=== PATIENT | male | born 1955 | race Asian ===

== ENCOUNTER 2016-12-21 02:54 | Inpatient (IN) | payer BC ==
[~2016-12-21] VITALS: Ht 172.7 cm; Wt 67.7 kg
[2016-12-21] VITALS (7 sets, daily range): BP systolic 122–129; BP diastolic 66–79
[2016-12-21] MEDS ORDERED: METFORMIN HCL500 M1 ORAL (03:03)
[2016-12-21] MEDS ORDERED: LOSARTAN POTASS25 MG ORAL (03:03)
[2016-12-21] MEDS ORDERED: AMLODIPINE BESYL5 MG ORAL (03:03)
[2016-12-21] MEDS ORDERED: LIPITOR80 MG ORAL (03:34)
[2016-12-21] MEDS ORDERED: GLIPIZIDE10 MG PO (03:34)
[2016-12-21] MEDS ORDERED: LOSARTAN POTAS100 MG ORAL (03:34)
[2016-12-21] MEDS ORDERED: ASPIR-LOW81 MG ORAL (03:34)
[2016-12-21 04:21] LABS: BASOPHILS % (AUTO) 0.9 % (0.0-2.0); EOSINOPHILS % (AUTO) 2.8 % (0.0-3.0); LYMPHOCYTES % (AUTO) 10.8 % (20.0-45.0); MEAN CORPUSCULAR VOLUME 94 FL (80-99); MONOCYTES % (AUTO) 4.7 % (1.0-10.0); NEUTROPHILS % (AUTO) 80.9 % (45.0-75.0); PLATELET COUNT 249 K/UL (150-450); RED BLOOD COUNT 3.44 M/UL (4.70-6.10); RED CELL DISTRIBUTION WIDTH 11.6 % (11.6-14.8); WHITE BLOOD COUNT 12.4 K/UL (4.8-10.8)
[2016-12-21 04:34] LABS: ALBUMIN/GLOBULIN RATIO 1.2 (1.0-2.7); CALCIUM 8.5 mg/dL (8.6-10.2); CREATININE 1.4 mg/dL (0.7-1.2); GLOMERULAR FILTRATION RATE 51.5 mL/min (>60); POTASSIUM 4.7 mEQ/L (3.4-4.9); TOTAL PROTEIN 6.4 g/dL (6.6-8.7)
[2016-12-21 04:38] LABS: TROPONIN I < 0.30 ng/mL (<=0.30)
[2016-12-21] MEDS ORDERED: Cefepime HCl 2 GM in D5W 110 ML IVPB ONE (04:45)
--- NOTE | 2016-12-21 04:45 | Emergency Room Report ---
History of Present Illness General Chief Complaint: Dyspnea/Respdistress Source: Patient, EMS Present Illness HPI 61YOM BIBEMS with acute onset SOB Per EMS, bilateral rales on exam, O2 sat 80s History of CHF, DM Denies recent fever/chills, cough, chest pain, abd pain, urinary complaints Allergies: Coded Allergies: No Known Allergies (Unverified , 12/21/16) Patient History Past Medical History: DM, CHF Past Surgical History: none Pertinent Family History: none Social History: Denies: alcohol use, drug use, smoking Immunizations: UTD Reviewed Nursing Documentation: PMH: Agreed, PSxH: Agreed Nursing Documentation-PMH Past Medical History: No History, Except For Hx Cardiac Problems: Yes - CHF Hx Hypertension: Yes Hx Diabetes: Yes Review of Systems All Other Systems: negative except mentioned in HPI Physical Exam Vital Signs Date Time Temp Pulse Resp B/P Pulse Ox O2 Delivery O2 Flow Rate FiO2 12/21/16 02:55 98.6 93 35 136/77 95 Simple Mask 15.0 12/21/16 03:36 50 Sp02 EP Interpretation: reviewed, normal General Appearance: normal inspection, well appearing, alert, GCS 15, moderate distress Head: normocephalic, atraumatic Eyes: bilateral eye EOMI, bilateral eye PERRL ENT: normal ENT inspection, hearing grossly normal, normal voice Neck: normal inspection, full range of motion, supple, no bony tend Respiratory: normal inspection, no wheezing, respiratory distress, accessory muscle use, crackles Cardiovascular #1: regular rate, rhythm, no edema Gastrointestinal: normal inspection, normal bowel sounds, non tender, soft, no guarding, no hernia Genitourinary: no CVA tenderness Musculoskeletal: normal inspection, back normal, normal range of motion, Darren' s Sign negative Neurologic: normal inspection, alert, oriented x3, responsive, employment assistant III-XII nml as tested, motor strength/tone normal, speech normal Psychiatric: normal inspection, judgement/insight normal, mood/affect normal Skin: normal inspection, normal color, no rash Lymphatic: normal inspection Medical Decision Making Medicare Attestation I John White MD hereby attest that the medical record entry for date of service, 04/19/16 accurately reflects signatures/notations that I made in my capacity as MD when I treated/diagnosed the above listed Medicare beneficiary. I attest that this information is true, accurate and complete to the best of my knowledge. I understand that any falsification, omission, or concealment of material fact may subject me to administrative, civil, or criminal liability. This patient warrants hospital admission for extreme of age and has a condition that cannot be treated as outpatient. Diagnostic Impression: Primary Impression: Dyspnea Qualified Codes: R06.02 - Shortness of breath Additional Impressions: CHF (congestive heart failure) Qualified Codes: I50.9 - Heart failure, unspecified SHIRLENE (acute kidney injury) ER Course Acute on chronic CHF exab - Elevation BNP. CXR with pulm edema - Improved with lasix, Bipap - ECG with lateral ST depressions. Trop 0. ASA given. - Mild leuks, ?also PNA on CXR so ABx given after Blood Cx Endorsed to Dr Maldonado for [facility] admit at 508am EKG Diagnostic Results Rate: normal Rhythm: NSR ST Segments: other - V5-6 ST depressions ASA given to the pt in ED: Yes Rhythm Strip Diag. Results EP Interpretation: yes Rate: 56 Rhythm: NSR, no PVC's, no ectopy Chest X-Ray Diagnostic Results Chest X-Ray Diagnostic Results : Chest X-Ray Ordered: Yes # of Views/Limited/Complete: 1 View Indication: Shortness of Breath EP Interpretation: Yes Interpretation: no pneumothorax, other - Bilateral pulm congestion Interpreting ER Provider: Electronically signed by Dr White Last Vital Signs Date Time Temp Pulse Resp B/P Pulse Ox O2 Delivery O2 Flow Rate FiO2 12/21/16 04:34 68 20 100 Facial 30 12/21/16 03:09 98.6 128/79 15.0 Status: improved Disposition: ADMITTED INPATIENT Condition: Serious Referrals: NON PHYSICIAN (PCP) JOHN WHITE M.D. Dec 21, 2016 04:45
[2016-12-21] MEDS ORDERED: Cefepime 2gm ONE (05:04)
[2016-12-21] MEDS ORDERED: DuoNeb 0.5-3(2.5)mg/3ml neb HHN PRN (08:00)
[2016-12-21] MEDS ORDERED: Miralax 17gm pkt ORAL PRN (08:00)
[2016-12-21] MEDS ORDERED: Losartan 50mg tab ORAL SCH (09:00)
[2016-12-21] MEDS: Heparin 5000 units/ml inj SUBQ SCH ×2 (09:28→21:18)
[2016-12-21] MEDS: Aspirin EC 81mg tab ORAL SCH (09:35)
--- NOTE | 2016-12-21 10:13 | History and Physical ---
History of Present Illness General Date patient seen: Dec 21, 2016 Reason for Hospitalization: Dyspnea/Respdistress Present Illness HPI 61 year old male with hx of DM, HTN, CHF brought in by paramedics with CC of acute onset SOB. Per EMS, he had bilateral rales on exam, O2 sat 80s Denies recent fever/chills, cough, chest pain, abd pain, urinary complaints. Pt received respiratory treatment and diuretics in ER and got somewhat better and admitted to [facility] for further treatment. Allergies: Coded Allergies: No Known Allergies (Unverified , 12/21/16) Medication History Scheduled Amlodipine Besylate* (Amlodipine Besylate*), 5 MG ORAL DAILY, (Reported) Aspirin* (Aspir-Low*), 81 MG ORAL DAILY, (Reported) Atorvastatin (Lipitor), 10 MG ORAL DAILY, (Reported) Losartan Potassium (Losartan Potassium), 100 MG ORAL DAILY, (Reported) Losartan Potassium* (Losartan Potassium*), 25 MG ORAL DAILY, (Reported) Metformin Hcl* (Metformin Hcl*), 500 MG ORAL TWICE A DAY, (Reported) Miscellaneous Medications Glipizide (Glipizide), 10 MG PO, (Reported) Patient History Healthcare decision maker Resuscitation status Advanced Directive on File Past Medical/Surgical History Past Medical/Surgical History: (1) Diabetes mellitus (2) HTN (hypertension) Review of Systems All Other Systems: negative except mentioned in HPI Physical Exam General Appearance: WD/WN Lines, tubes and drains: peripheral HEENT: normocephalic, atraumatic Neck: non-tender, normal alignment Respiratory/Chest: chest wall non-tender, lungs clear Cardiovascular/Chest: normal peripheral pulses, normal rate Abdomen: normal bowel sounds, non tender Genitourinary/Rectal: normal genital exam Extremities: normal range of motion Skin Exam: normal pigmentation Last 24 Hour Vital Signs Date Time Temp Pulse Resp B/P Pulse Ox O2 Delivery O2 Flow Rate FiO2 12/21/16 09:27 129/68 12/21/16 09:27 71 129/68 12/21/16 09:00 97.7 71 18 129/68 98 Nasal Cannula 5.0 12/21/16 08:47 63 18 Nasal Cannula 5.0 12/21/16 07:21 98.0 63 19 129/72 97 Nasal Cannula 5.0 12/21/16 05:28 98.6 76 16 124/66 100 Nasal Cannula 2.0 12/21/16 04:34 68 20 100 Facial 30 12/21/16 03:36 78 23 100 Facial 50 12/21/16 03:09 98.6 84 24 128/79 95 Simple Mask 15.0 12/21/16 03:09 85 24 Bi-pap 15.0 12/21/16 02:55 98.6 93 35 136/77 95 Simple Mask 15.0 Intake and Output 12/20/16 12/21/16 19:00 07:00 Intake Total 0 ml Output Total 600 ml Balance -600 ml Intake Oral 0 ml Output Urine Total 600 ml Laboratory Tests Test 12/21/16 04:10 White Blood Count 12.4 K/UL (4.8-10.8) H Red Blood Count 3.44 M/UL (4.70-6.10) L Hemoglobin 11.0 G/DL (14.2-18.0) L Hematocrit 32.4 % (42.0-52.0) L Mean Corpuscular Volume 94 FL (80-99) Mean Corpuscular Hemoglobin 32.0 PG (27.0-31.0) H Mean Corpuscular Hemoglobin Concent 34.0 G/DL (32.0-36.0) Red Cell Distribution Width 11.6 % (11.6-14.8) Platelet Count 249 K/UL (150-450) Mean Platelet Volume 8.0 FL (6.5-10.1) Neutrophils (%) (Auto) 80.9 % (45.0-75.0) H Lymphocytes (%) (Auto) 10.8 % (20.0-45.0) L Monocytes (%) (Auto) 4.7 % (1.0-10.0) Eosinophils (%) (Auto) 2.8 % (0.0-3.0) Basophils (%) (Auto) 0.9 % (0.0-2.0) Sodium Level 136 mEQ/L (135-145) Potassium Level 4.7 mEQ/L (3.4-4.9) Chloride Level 105 mEQ/L (98-107) Carbon Dioxide Level 21 mEQ/L (20-30) Anion Gap 10 (5-15) Blood Urea Nitrogen 39 mg/dL (7-23) H Creatinine 1.4 mg/dL (0.7-1.2) H Estimat Glomerular Filtration Rate 51.5 mL/min (>60) Glucose Level 305 mg/dL (74-106) H Calcium Level 8.5 mg/dL (8.6-10.2) L Total Bilirubin 0.2 mg/dL (0.0-1.2) Aspartate Amino Transf (AST/SGOT) 18 U/L (5-40) Alanine Aminotransferase (ALT/SGPT) 22 U/L (3-41) Alkaline Phosphatase 48 U/L (40-129) Total Creatine Kinase 119 U/L (38-174) Creatine Kinase MB 3.0 ng/mL (< 6.7) Creatine Kinase MB Relative Index 2.5 Troponin I < 0.30 ng/mL (<=0.30) Pro-B-Type Natriuretic Peptide 1649 pg/mL (0-125) H Total Protein 6.4 g/dL (6.6-8.7) L Albumin 3.5 g/dL (3.5-5.2) Globulin 2.9 g/dL Albumin/Globulin Ratio 1.2 (1.0-2.7) Height (Feet): 5 Height (Inches): 8.00 Weight (Pounds): 175 Medications Current Medications Medications (Trade) Dose Ordered Sig/Ashlee Route PRN Reason Start Time Stop Time Status Last Admin Dose Admin Acetaminophen (Tylenol) 650 mg Q4H PRN ORAL Fever>100.5 12/21/16 08:00 01/20/17 07:59 Albuterol/ Ipratropium (DuoNeb 0.5-3(2.5)mg/3ml) 3 ml Q4H PRN HHN Shortness of Breath 12/21/16 08:00 12/26/16 07:59 Amlodipine Besylate (Norvasc) 5 mg DAILY ORAL 12/21/16 09:00 01/20/17 08:59 12/21/16 09:27 Aspirin (Ecotrin) 81 mg DAILY ORAL 12/21/16 09:00 01/20/17 08:59 12/21/16 09:35 Atorvastatin Calcium (Lipitor) 10 mg BEDTIME ORAL 12/21/16 21:00 01/20/17 20:59 Dextrose (Dextrose 50%) STAT PRN IV Hypoglycemia 12/21/16 08:00 01/20/17 07:59 Furosemide (Lasix) 40 mg EVERY 8 HOURS IV 12/21/16 08:00 01/20/17 07:59 12/21/16 09:27 Heparin Sodium (Porcine) (Heparin 5000 units/ml) 5,000 units EVERY 12 HOURS SUBQ 12/21/16 09:00 01/20/17 08:59 12/21/16 09:28 Insulin Aspart (NovoLOG) BEFORE MEALS AND HS SUBQ 12/21/16 11:30 01/20/17 11:29 Losartan Potassium (Cozaar) 100 mg DAILY ORAL 12/21/16 09:00 01/20/17 08:59 12/21/16 09:27 Ondansetron HCl (Zofran) 4 mg Q6H PRN IVP Nausea & Vomiting 12/21/16 08:00 01/20/17 07:59 Polyethylene Glycol (Miralax) 17 gm DAILYPRN PRN ORAL Constipation 12/21/16 08:00 01/20/17 07:59 Temazepam (Restoril) 15 mg HSPRN PRN ORAL Insomnia 12/21/16 21:00 12/28/16 20:59 Assessment/Plan Problem List: (1) Acute respiratory failure ICD Codes: J96.00 - Acute respiratory failure, unspecified whether with hypoxia or hypercapnia SNOMED: 72675656 (2) CHF (congestive heart failure) ICD Codes: I50.9 - Heart failure, unspecified SNOMED: 89987924 Qualifiers: Qualified Codes: I50.9 - Heart failure, unspecified (3) Diabetes mellitus ICD Codes: E11.9 - Type 2 diabetes mellitus without complications SNOMED: 07383637 (4) HTN (hypertension) ICD Codes: I10 - Essential (primary) hypertension SNOMED: 30054613 Assessment/Plan diuretics f/u cxr in am cardio evaluation 2d echo CURTIS SMITH Dec 21, 2016 10:13
[2016-12-21] MEDS: NovoLOG Insulin Flexpen SUBQ SCH ×3 (12:37→21:17)
[2016-12-21 12:58] LABS: TROPONIN I < 0.30 ng/mL (<=0.30)
--- NOTE | 2016-12-21 13:14 | Cardiology Progress Note ---
Assessment/Plan Assessment/Plan chf severe aortic stenosis exertional chest pain renal insuf dm htn hyperlipidemia will likley need avr may qualify for TAVR at [facility] i have discussed with him very briefly about the possibility not clear to me if tavr is offered to him already he is hesitent to do anythign it appear as had renal fiurel post cath but i i think in light of development of sx he shoudlhave the valve taken care fo one way or the other as at risk of major complication or scd now with symtomtic will contienu anoteh dose of diuretic overnight byt would not tightly control his bp [id number] Objective Last 24 Hour Vital Signs Date Time Temp Pulse Resp B/P Pulse Ox O2 Delivery O2 Flow Rate FiO2 12/21/16 12:00 97.5 65 20 126/71 99 Nasal Cannula 4.0 12/21/16 11:40 75 12/21/16 10:11 62 12/21/16 09:27 129/68 12/21/16 09:27 71 129/68 12/21/16 09:00 97.7 71 18 129/68 98 Nasal Cannula 5.0 12/21/16 08:47 63 18 Nasal Cannula 5.0 12/21/16 07:56 98.0 63 19 129/72 97 Nasal Cannula 5.0 30 12/21/16 07:21 98.0 63 19 129/72 97 Nasal Cannula 5.0 12/21/16 05:28 98.6 76 16 124/66 100 Nasal Cannula 2.0 12/21/16 04:34 68 20 100 Facial 30 12/21/16 03:36 78 23 100 Facial 50 12/21/16 03:09 98.6 84 24 128/79 95 Simple Mask 15.0 12/21/16 03:09 85 24 Bi-pap 15.0 12/21/16 02:55 98.6 93 35 136/77 95 Simple Mask 15.0 Intake and Output 12/20/16 12/21/16 19:00 07:00 Intake Total 0 ml Output Total 600 ml Balance -600 ml Intake Oral 0 ml Output Urine Total 600 ml Laboratory Tests Test 12/21/16 04:10 12/21/16 12:26 White Blood Count 12.4 K/UL (4.8-10.8) H Red Blood Count 3.44 M/UL (4.70-6.10) L Hemoglobin 11.0 G/DL (14.2-18.0) L Hematocrit 32.4 % (42.0-52.0) L Mean Corpuscular Volume 94 FL (80-99) Mean Corpuscular Hemoglobin 32.0 PG (27.0-31.0) H Mean Corpuscular Hemoglobin Concent 34.0 G/DL (32.0-36.0) Red Cell Distribution Width 11.6 % (11.6-14.8) Platelet Count 249 K/UL (150-450) Mean Platelet Volume 8.0 FL (6.5-10.1) Neutrophils (%) (Auto) 80.9 % (45.0-75.0) H Lymphocytes (%) (Auto) 10.8 % (20.0-45.0) L Monocytes (%) (Auto) 4.7 % (1.0-10.0) Eosinophils (%) (Auto) 2.8 % (0.0-3.0) Basophils (%) (Auto) 0.9 % (0.0-2.0) Sodium Level 136 mEQ/L (135-145) Potassium Level 4.7 mEQ/L (3.4-4.9) Chloride Level 105 mEQ/L (98-107) Carbon Dioxide Level 21 mEQ/L (20-30) Anion Gap 10 (5-15) Blood Urea Nitrogen 39 mg/dL (7-23) H Creatinine 1.4 mg/dL (0.7-1.2) H Estimat Glomerular Filtration Rate 51.5 mL/min (>60) Glucose Level 305 mg/dL (74-106) H Calcium Level 8.5 mg/dL (8.6-10.2) L Total Bilirubin 0.2 mg/dL (0.0-1.2) Aspartate Amino Transf (AST/SGOT) 18 U/L (5-40) Alanine Aminotransferase (ALT/SGPT) 22 U/L (3-41) Alkaline Phosphatase 48 U/L (40-129) Total Creatine Kinase 119 U/L (38-174) Creatine Kinase MB 3.0 ng/mL (< 6.7) Creatine Kinase MB Relative Index 2.5 Troponin I < 0.30 ng/mL (<=0.30) < 0.30 ng/mL (<=0.30) Pro-B-Type Natriuretic Peptide 1649 pg/mL (0-125) H Total Protein 6.4 g/dL (6.6-8.7) L Albumin 3.5 g/dL (3.5-5.2) Globulin 2.9 g/dL Albumin/Globulin Ratio 1.2 (1.0-2.7) CHARLES HAM Dec 21, 2016 13:14
--- NOTE | 2016-12-21 15:20 | Cardiology Report ---
APPROVED REPORT EXAM: Two-dimensional and M-mode echocardiogram with Doppler and color Doppler. INDICATION Left Ventricular Function M-Mode DIMENSIONS IVSd1.4 (0.7-1.1cm)Left Atrium (MM)5.2 (1.6-4.0cm) LVDd4.7 (3.5-5.6cm)Aortic Root2.4 (2.0-3.7cm) PWd1.3 (0.7-1.1cm)Aortic Cusp Exc.0.6 (1.5-2.0cm) LVDs2.8 (2.5-4.0cm) PWs2.1 cm Normal left ventricular chamber size, systolic function and wall motion. Left ventricular ejection fraction estimated to be 55 -60 %. Mild left ventricular hypertrophy. No evidence of pericardial fat or effusion. Mild left atrial enlargement. Right cardiac chamber sizes are within normal limits. Aortic valve calcification with decreased cusp excursion c/w SEVERE aortic stenosis. Mildly thickened mitral valve leaflets with normal excursion. Mild mitral annulus and aortic root calcification. Normal pulmonic valve structure. Normal tricuspid valve structure. IVC dilated at 2.0 cm with physiologic collapse. A color flow and spectral Doppler study was performed and revealed: Mild aortic regurgitation. Peak aortic valve gradient of 88 mmHg and a mean of 57 mmHg. Aortic valve area 0.6 cm2 calculated by continuity equation. Mild mitral regurgitation. Mitral inflow normal Mild tricuspid regurgitation. Tricuspid systolic velocities suggests peak right ventricular systolic pressure of 53 mmHg, consistent with moderate pulmonary hypertension. No pulmonic regurgitation present.
--- NOTE | 2016-12-21 16:12 | Diagnostic Imaging Report ---
Indication: SOB Technique: One view of the chest Comparison: none Findings: There is suggestion of infrahilar infiltrates bilaterally. There is possibly some pleural fluid on the left. The heart size is normal. The right pleural space, bilateral upper lung crandall are clear. Impression: Suspect bilateral infrahilar infiltrates and small left pleural effusion. Correlate with clinical findings
--- NOTE | 2016-12-21 20:30 | Consultation ---
DATE OF CONSULTATION: 12/21/2016 CARDIOLOGY CONSULTATION CONSULTING PHYSICIAN: Porter Barnes M.D. REFERRING PHYSICIAN: Bethel Maldonado M.D. REASON FOR REFERRAL: Congestive heart failure. HISTORY OF PRESENT ILLNESS: This is a 61-year-old [place] gentleman, who apparently has history of hypertension and diabetes. I get that his usual distribution field technician a month ago referred him to [facility] for evaluation where he apparently underwent testing that sounds like he had a coronary angiography complicated by renal failure and eventual resolution of renal failure. Nevertheless, they told him he needs surgery and different doctors have been involved, but apparently they did not find any vascular blockages as I understand. It is important to note that the information obtained is purely from the patient through one of our [place] nurses translating for me. Nevertheless, eventually it has been functionally improved. He started having shortness of breath last night and he walked to bathroom and has had some chest pain on exertion that goes away with rest. He has a tightness sensation in the chest as what he described it. There is no PND otherwise. There is no orthopnea. He uses one pillow. Occasionally, he has dizziness and lightheadedness. He occasionally has palpitation. PAST MEDICAL HISTORY: There is history of diabetes mellitus and high blood pressure. No history of heart attack. He has had hyperlipidemia. No cancer. No stroke. No hepatitis or tuberculosis. No asthma or emphysema. No ulcers. He did mention that he has renal failure as a result of the dye possibly as I understand. No liver failure. No thyroid problems, anemia, or arthritis. He thinks he may have prostate problems, but he is not sure and no other medical problems. ALLERGIES: He is not allergic to any medications. SOCIAL HISTORY: He used to smoke, quit approximately one year ago. Socially, he drinks alcoholic beverages. No drug use. REVIEW OF SYSTEMS: Gastrointestinal: He has occasional constipation. Genitourinary: He has had some discomfort on urination. Pulmonary: Negative. Constitutional: Negative. Neurologic: Negative. PHYSICAL EXAMINATION: GENERAL: Shows to be middle-aged gentleman, in no apparent respiratory distress. VITAL SIGNS: His blood pressure is anywhere between 126/71 to 136/77. His heart rates have been in the 63 to 75 range. NECK: Supple. There is a delay in carotid upstroke. LUNGS: Few crackles noted in the bases. CARDIAC: S1 is normal. S2 is normal. Regular rate and rhythm. Systolic ejection murmur is noted in the aortic band. ABDOMEN: Soft and nontender. Positive bowel sounds. EXTREMITIES: There is no clubbing, cyanosis, nor is there any edema. NEUROLOGIC: He is awake, alert, responsive, and in no apparent respiratory distress. LABORATORY DATA: The white count of 12.4, hemoglobin 11, and platelet count 249,000. Sodium 136, potassium 4.7, chloride 105, bicarbonate of 21, BUN of 39, creatinine 1.4, and a glucose of 305. His calcium is 8.5. Troponin is less than 0.3 on two separate occasions. ProBNP of 1600. Total protein of 6.4 and albumin of 3.5. Venous duplex that was performed shows no evidence of thrombus. Chest x-ray may have been performed although the report is not available. Chest x-ray shows some evidence of failure at least to my reading, official reading per the radiologist is pending at this time. His electrocardiogram performed showed a normal sinus rhythm, some nonspecific T-wave changes, possibly related to left ventricular hypertrophy. There is no other abnormalities. Preliminary echocardiogram has shown ejection fraction of 55%, normal wall motion with dilated IVC and mild aortic regurgitation. Peak aortic valve gradient is 88 and mean gradient of 57 with aortic valve area of 0.6. This needs to be evaluated. He does have mild aortic stenosis with pulmonary hypertension in the 50s. ASSESSMENT: 1. Congestive heart failure. 2. Severe aortic stenosis. 3. Exertional chest pain. 4. Renal insufficiency. 5. Diabetes mellitus. 6. Hypertension. 7. Hyperlipidemia. PLAN: Dr. Maldonado, this patient was seen in cardiac consultation. Certainly, the congestive heart failure is likely being caused by the aortic stenosis, not clear to me if he has any coronary disease. Apparently, he was told there was no blockages in his coronaries as I understand it. He will likely need an aortic valve replacement. He may on the other hand qualify for TAVR at [facility] as well. I discussed with him very briefly about those two possibilities. It not clear to me if TAVR was ever offered to him already. He states it appears as he had renal failure post cardiac catheterization that was performed, however, in the light of the fact that he now has symptomatic aortic stenosis, so he should have without taking care of one way or the other to prevent the possible risks and complications of untreated symptomatic aortic stenosis, which includes congestive heart failure and certainly a risk of sudden cardiac . I would continue with diuretics at least overnight and I would not control his blood pressure tightly. Porter Barnes M.D. DR: MIKAYLA JOB#: [id number] CC:
[2016-12-22] VITALS: BP 128/72
[2016-12-22 04:00] VITALS: BP 124/72
[2016-12-22] MEDS: NovoLOG Insulin Flexpen SUBQ SCH ×4 (06:11→20:48)
[2016-12-22 07:48] LABS: BASOPHILS % (AUTO) 1.5 % (0.0-2.0); EOSINOPHILS % (AUTO) 6.1 % (0.0-3.0); LYMPHOCYTES % (AUTO) 26.3 % (20.0-45.0); MEAN CORPUSCULAR HEMOGLOBIN 31.7 PG (27.0-31.0); MEAN CORPUSCULAR HGB CONC 33.2 G/DL (32.0-36.0); MEAN CORPUSCULAR VOLUME 95 FL (80-99); MONOCYTES % (AUTO) 5.8 % (1.0-10.0); NEUTROPHILS % (AUTO) 60.3 % (45.0-75.0); PLATELET COUNT 307 K/UL (150-450); RED CELL DISTRIBUTION WIDTH 11.9 % (11.6-14.8); WHITE BLOOD COUNT 10.6 K/UL (4.8-10.8)
[2016-12-22 07:59] LABS: CREATININE 1.6 mg/dL (0.7-1.2); GLOMERULAR FILTRATION RATE 44.2 mL/min (>60); TROPONIN I < 0.30 ng/mL (<=0.30)
[2016-12-22 08:00] VITALS: BP 125/65
[2016-12-22] MEDS: Aspirin EC 81mg tab ORAL SCH (08:53)
[2016-12-22] MEDS: Heparin 5000 units/ml inj SUBQ SCH ×2 (08:55→20:47)
--- NOTE | 2016-12-22 11:09 | Pulmonology Progress Note ---
Assessment/Plan Problems: (1) Acute respiratory failure (2) CHF (congestive heart failure) (3) Diabetes mellitus (4) HTN (hypertension) Assessment/Plan dc lasix for now watch bun/creatinine pulmonary edema resolved adjust cardiac meds Subjective ROS Limited/Unobtainable: No Constitutional: Reports: no symptoms HEENT: Repors: no symptoms Respiratory: Reports: no symptoms Allergies: Coded Allergies: No Known Allergies (Unverified , 12/21/16) Objective Last 24 Hour Vital Signs Date Time Temp Pulse Resp B/P Pulse Ox O2 Delivery O2 Flow Rate FiO2 12/22/16 08:53 61 125/65 12/22/16 08:01 58 12/22/16 08:00 98.3 61 20 125/65 100 Nasal Cannula 2.0 12/22/16 06:33 98 Nasal Cannula 2.0 28 12/22/16 06:33 Nasal Cannula 2.0 28 12/22/16 06:33 75 18 Nasal Cannula 2.0 12/22/16 04:00 60 12/22/16 04:00 97.2 68 19 124/72 99 Nasal Cannula 2.0 12/22/16 00:00 70 12/22/16 00:00 97.0 66 19 128/72 98 Nasal Cannula 2.0 12/21/16 20:00 97.5 69 19 123/78 97 Room Air 12/21/16 19:19 69 12/21/16 19:05 69 18 Nasal Cannula 2.0 12/21/16 16:00 97.3 65 20 122/68 99 Nasal Cannula 4.0 12/21/16 15:27 62 12/21/16 12:00 97.5 65 20 126/71 99 Nasal Cannula 4.0 12/21/16 11:40 75 Intake and Output 12/21/16 12/22/16 19:00 07:00 Intake Total 240 ml Balance 240 ml Intake Oral 240 ml # Voids 2 4 General Appearance: WD/WN HEENT: normocephalic, atraumatic Respiratory/Chest: chest wall non-tender, normal breath sounds Cardiovascular: normal peripheral pulses, normal rate Abdomen: normal bowel sounds, soft, non tender, no organomegaly Genitourinary: normal external genitalia Extremities: no cyanosis Skin: no lesions Neurologic/Psychiatric: dancer or choreographer II-XII grossly normal Lymphatic: no neck adenopathy Musculoskeletal: normal muscle bulk Laboratory Tests 8/8/17 12:26: Troponin I < 0.30 12/22/16 07:15: Troponin I < 0.30, White Blood Count 10.6, Red Blood Count 4.00L, Hemoglobin 12.7L, Hematocrit 38.2L, Mean Corpuscular Volume 95, Mean Corpuscular Hemoglobin 31.7H, Mean Corpuscular Hemoglobin Concent 33.2, Red Cell Distribution Width 11.9, Platelet Count 307, Mean Platelet Volume 8.0, Neutrophils (%) (Auto) 60.3, Lymphocytes (%) (Auto) 26.3, Monocytes (%) (Auto) 5.8, Eosinophils (%) (Auto) 6.1H, Basophils (%) (Auto) 1.5, Sodium Level 140, Potassium Level 5.0H, Chloride Level 102, Carbon Dioxide Level 27, Anion Gap 11 , Blood Urea Nitrogen 38H, Creatinine 1.6H, Estimat Glomerular Filtration Rate 44.2, Glucose Level 244H, Calcium Level 10.0, Phosphorus Level 5.0H, Albumin 4.3 Current Medications Medications (Trade) Dose Ordered Sig/Ashlee Route PRN Reason Start Time Stop Time Status Last Admin Dose Admin Acetaminophen (Tylenol) 650 mg Q4H PRN ORAL Fever>100.5 12/21/16 08:00 01/20/17 07:59 Albuterol/ Ipratropium (DuoNeb 0.5-3(2.5)mg/3ml) 3 ml Q4H PRN HHN Shortness of Breath 12/21/16 08:00 12/26/16 07:59 Amlodipine Besylate (Norvasc) 5 mg DAILY ORAL 12/21/16 09:00 01/20/17 08:59 12/22/16 08:53 Aspirin (Ecotrin) 81 mg DAILY ORAL 12/21/16 09:00 01/20/17 08:59 12/22/16 08:53 Atorvastatin Calcium (Lipitor) 10 mg BEDTIME ORAL 12/21/16 21:00 01/20/17 20:59 12/21/16 21:11 Dextrose (Dextrose 50%) STAT PRN IV Hypoglycemia 12/21/16 08:00 01/20/17 07:59 Furosemide (Lasix) 40 mg BID IV 12/21/16 18:00 01/20/17 17:59 12/22/16 08:53 Heparin Sodium (Porcine) (Heparin 5000 units/ml) 5,000 units EVERY 12 HOURS SUBQ 12/21/16 09:00 01/20/17 08:59 12/22/16 08:55 Insulin Aspart (NovoLOG) BEFORE MEALS AND HS SUBQ 12/21/16 11:30 01/20/17 11:29 12/22/16 06:11 Ondansetron HCl (Zofran) 4 mg Q6H PRN IVP Nausea & Vomiting 12/21/16 08:00 01/20/17 07:59 Polyethylene Glycol (Miralax) 17 gm DAILYPRN PRN ORAL Constipation 12/21/16 08:00 01/20/17 07:59 Temazepam (Restoril) 15 mg HSPRN PRN ORAL Insomnia 12/21/16 21:00 12/28/16 20:59 CURTIS SMITH Dec 22, 2016 11:09
[2016-12-22 12:00] VITALS: BP 114/63
--- NOTE | 2016-12-22 12:58 | Diagnostic Imaging Report ---
APPROVED REPORT CPT Code: 18323 Present Symptoms Shortness of breath BILATERAL: Imaging reveals a patent deep venous system bilaterally. There is no evidence of thrombus within the femoral, popliteal or tibial segments. The greater saphenous veins are also within normal limits. Doppler indicates normal spontaneous flow within these segments.
[2016-12-22 16:00] VITALS: BP 129/75
--- NOTE | 2016-12-22 19:50 | Cardiology Progress Note ---
Assessment/Plan Assessment/Plan chf severe aortic stenosis exertional chest pain renal insuf dm htn hyperlipidemia will likley need avr however may qualify for TAVR at [facility] now off lasix cr mildly elevated dc home soon so he can pursuit his eventual procedure which ever he chooses to do so tele reviwed [facility] Subjective Cardiovascular: Denies: chest pain, lightheadedness, palpitations Respiratory: Reports: shortness of breath Gastrointestinal/Abdominal: Denies: abdominal pain Genitourinary: Denies: burning Objective Last 24 Hour Vital Signs Date Time Temp Pulse Resp B/P Pulse Ox O2 Delivery O2 Flow Rate FiO2 12/22/16 16:00 65 12/22/16 16:00 98.0 59 20 129/75 99 Nasal Cannula 2.0 12/22/16 12:00 98.1 60 21 114/63 99 Nasal Cannula 2.0 12/22/16 11:51 57 12/22/16 08:53 61 125/65 12/22/16 08:01 58 12/22/16 08:00 98.3 61 20 125/65 100 Nasal Cannula 2.0 12/22/16 06:33 98 Nasal Cannula 2.0 28 12/22/16 06:33 Nasal Cannula 2.0 28 12/22/16 06:33 75 18 Nasal Cannula 2.0 12/22/16 04:00 60 12/22/16 04:00 97.2 68 19 124/72 99 Nasal Cannula 2.0 12/22/16 00:00 70 12/22/16 00:00 97.0 66 19 128/72 98 Nasal Cannula 2.0 12/21/16 20:00 97.5 69 19 123/78 97 Room Air General Appearance: alert Neck: supple Cardiovascular: normal rate, regular rhythm, systolic murmur Respiratory/Chest: lungs clear Abdomen: normal bowel sounds, non tender, soft Extremities: trace edema Intake and Output 12/21/16 12/22/16 19:00 07:00 Intake Total 240 ml Balance 240 ml Intake Oral 240 ml # Voids 2 4 Laboratory Tests Test 12/22/16 07:15 White Blood Count 10.6 K/UL (4.8-10.8) Red Blood Count 4.00 M/UL (4.70-6.10) L Hemoglobin 12.7 G/DL (14.2-18.0) L Hematocrit 38.2 % (42.0-52.0) L Mean Corpuscular Volume 95 FL (80-99) Mean Corpuscular Hemoglobin 31.7 PG (27.0-31.0) H Mean Corpuscular Hemoglobin Concent 33.2 G/DL (32.0-36.0) Red Cell Distribution Width 11.9 % (11.6-14.8) Platelet Count 307 K/UL (150-450) Mean Platelet Volume 8.0 FL (6.5-10.1) Neutrophils (%) (Auto) 60.3 % (45.0-75.0) Lymphocytes (%) (Auto) 26.3 % (20.0-45.0) Monocytes (%) (Auto) 5.8 % (1.0-10.0) Eosinophils (%) (Auto) 6.1 % (0.0-3.0) H Basophils (%) (Auto) 1.5 % (0.0-2.0) Sodium Level 140 mEQ/L (135-145) Potassium Level 5.0 mEQ/L (3.4-4.9) H Chloride Level 102 mEQ/L (98-107) Carbon Dioxide Level 27 mEQ/L (20-30) Anion Gap 11 (5-15) Blood Urea Nitrogen 38 mg/dL (7-23) H Creatinine 1.6 mg/dL (0.7-1.2) H Estimat Glomerular Filtration Rate 44.2 mL/min (>60) Glucose Level 244 mg/dL (74-106) H Calcium Level 10.0 mg/dL (8.6-10.2) Phosphorus Level 5.0 mg/dL (2.5-4.8) H Troponin I < 0.30 ng/mL (<=0.30) Albumin 4.3 g/dL (3.5-5.2) CHARLES HAM Dec 22, 2016 19:50
[2016-12-22 20:16] VITALS: BP 130/77
[2016-12-23 04:00] VITALS: BP 135/73
[2016-12-23] MEDS: NovoLOG Insulin Flexpen SUBQ SCH ×2 (06:19→11:30)
[2016-12-23 08:00] VITALS: BP 122/67
[2016-12-23] MEDS: Aspirin EC 81mg tab ORAL SCH (08:28)
[2016-12-23 08:29] VITALS: BP 122/67
[2016-12-23] MEDS: Heparin 5000 units/ml inj SUBQ SCH (08:30)
[2016-12-23 08:40] LABS: BASOPHILS % (AUTO) 1.4 % (0.0-2.0); LYMPHOCYTES % (AUTO) 25.4 % (20.0-45.0); MEAN CORPUSCULAR HEMOGLOBIN 34.3 PG (27.0-31.0); MEAN CORPUSCULAR HGB CONC 35.8 G/DL (32.0-36.0); MEAN CORPUSCULAR VOLUME 96 FL (80-99); MEAN PLATELET VOLUME 8.2 FL (6.5-10.1); MONOCYTES % (AUTO) 5.4 % (1.0-10.0); NEUTROPHILS % (AUTO) 60.7 % (45.0-75.0); PLATELET COUNT 268 K/UL (150-450); RED BLOOD COUNT 3.67 M/UL (4.70-6.10); RED CELL DISTRIBUTION WIDTH 11.7 % (11.6-14.8); WHITE BLOOD COUNT 9.7 K/UL (4.8-10.8)
[2016-12-23 08:47] LABS: ALBUMIN/GLOBULIN RATIO 1.1 (1.0-2.7); CALCIUM 9.7 mg/dL (8.6-10.2); CREATININE 1.4 mg/dL (0.7-1.2); GLOMERULAR FILTRATION RATE 51.5 mL/min (>60); POTASSIUM 4.4 mEQ/L (3.4-4.9); TOTAL PROTEIN 7.4 g/dL (6.6-8.7)
[2016-12-23 09:06] LABS: TROPONIN I < 0.30 ng/mL (<=0.30)
--- NOTE | 2016-12-23 10:28 | Pulmonology Progress Note ---
Assessment/Plan Problems: (1) Acute respiratory failure (2) CHF (congestive heart failure) (3) Diabetes mellitus (4) HTN (hypertension) Assessment/Plan off lasix for now watch bun/creatinine pulmonary edema resolved adjust cardiac meds pt will need repair or replacement of aortic valve. dc home with close f/u with cardiology Subjective ROS Limited/Unobtainable: No Constitutional: Reports: no symptoms HEENT: Repors: no symptoms Respiratory: Reports: no symptoms Allergies: Coded Allergies: No Known Allergies (Unverified , 12/21/16) Objective Last 24 Hour Vital Signs Date Time Temp Pulse Resp B/P Pulse Ox O2 Delivery O2 Flow Rate FiO2 12/23/16 08:55 100 Nasal Cannula 2.0 28 12/23/16 08:50 Nasal Cannula 2.0 28 12/23/16 08:50 65 18 Nasal Cannula 2.0 12/23/16 08:29 63 122/67 12/23/16 08:00 66 12/23/16 08:00 98.1 63 18 122/67 97 Room Air 12/23/16 04:00 65 12/23/16 04:00 98.2 65 20 135/73 100 Nasal Cannula 2.0 12/23/16 00:00 98.2 66 18 100 Nasal Cannula 2.0 12/23/16 00:00 57 12/22/16 20:27 98 Nasal Cannula 2.0 28 12/22/16 20:27 Nasal Cannula 2.0 28 12/22/16 20:27 80 18 Nasal Cannula 2.0 12/22/16 20:16 98.1 69 18 130/77 100 Nasal Cannula 2.0 12/22/16 20:00 68 12/22/16 16:00 65 12/22/16 16:00 98.0 59 20 129/75 99 Nasal Cannula 2.0 12/22/16 12:00 98.1 60 21 114/63 99 Nasal Cannula 2.0 12/22/16 11:51 57 Intake and Output 12/22/16 12/23/16 19:00 07:00 Intake Total 600 ml Balance 600 ml Intake Oral 600 ml # Voids 3 3 General Appearance: WD/WN HEENT: normocephalic, atraumatic Respiratory/Chest: chest wall non-tender, lungs clear Cardiovascular: normal peripheral pulses, normal rate Abdomen: normal bowel sounds, no organomegaly Genitourinary: normal external genitalia Extremities: no cyanosis Skin: no rash, no ulcers Microbiology Date/Time Source Procedure Growth Status 12/21/16 05:30 Blood Blood Culture - Preliminary NO GROWTH AFTER 48 HOURS Resulted 12/21/16 05:15 Blood Blood Culture - Preliminary NO GROWTH AFTER 48 HOURS Resulted Laboratory Tests 12/23/16 08:15: White Blood Count 9.7, Red Blood Count 3.67L, Hemoglobin 12.6L, Hematocrit 35.3L , Mean Corpuscular Volume 96, Mean Corpuscular Hemoglobin 34.3H, Mean Corpuscular Hemoglobin Concent 35.8, Red Cell Distribution Width 11.7, Platelet Count 268, Mean Platelet Volume 8.2, Neutrophils (%) (Auto) 60.7, Lymphocytes (% ) (Auto) 25.4, Monocytes (%) (Auto) 5.4, Eosinophils (%) (Auto) 7.0H, Basophils (%) (Auto) 1.4, Sodium Level 139, Potassium Level 4.4, Chloride Level 100, Carbon Dioxide Level 27, Anion Gap 12, Blood Urea Nitrogen 38H, Creatinine 1.4H , Estimat Glomerular Filtration Rate 51.5, Glucose Level 286H, Calcium Level 9.7 , Total Bilirubin 0.4, Aspartate Amino Transf (AST/SGOT) 19, Alanine Aminotransferase (ALT/SGPT) 21, Alkaline Phosphatase 54, Troponin I < 0.30, Pro- B-Type Natriuretic Peptide 1537H, Total Protein 7.4, Albumin 4.0, Globulin 3.4, Albumin/Globulin Ratio 1.1 Current Medications Medications (Trade) Dose Ordered Sig/Ashlee Route PRN Reason Start Time Stop Time Status Last Admin Dose Admin Acetaminophen (Tylenol) 650 mg Q4H PRN ORAL Fever>100.5 12/21/16 08:00 01/20/17 07:59 Albuterol/ Ipratropium (DuoNeb 0.5-3(2.5)mg/3ml) 3 ml Q4H PRN HHN Shortness of Breath 12/21/16 08:00 12/26/16 07:59 Amlodipine Besylate (Norvasc) 5 mg DAILY ORAL 12/21/16 09:00 01/20/17 08:59 12/23/16 08:29 Aspirin (Ecotrin) 81 mg DAILY ORAL 12/21/16 09:00 9/7/17 08:59 12/23/16 08:28 Atorvastatin Calcium (Lipitor) 10 mg BEDTIME ORAL 12/21/16 21:00 01/20/17 20:59 12/22/16 20:45 Dextrose (Dextrose 50%) STAT PRN IV Hypoglycemia 12/21/16 08:00 01/20/17 07:59 Heparin Sodium (Porcine) (Heparin 5000 units/ml) 5,000 units EVERY 12 HOURS SUBQ 12/21/16 09:00 01/20/17 08:59 12/23/16 08:30 Insulin Aspart (NovoLOG) BEFORE MEALS AND HS SUBQ 12/21/16 11:30 01/20/17 11:29 12/23/16 06:19 Ondansetron HCl (Zofran) 4 mg Q6H PRN IVP Nausea & Vomiting 12/21/16 08:00 01/20/17 07:59 Polyethylene Glycol (Miralax) 17 gm DAILYPRN PRN ORAL Constipation 12/21/16 08:00 01/20/17 07:59 Temazepam (Restoril) 15 mg HSPRN PRN ORAL Insomnia 12/21/16 21:00 12/28/16 20:59 CURTIS SMITH Dec 23, 2016 10:28
--- NOTE | 2016-12-24 06:33 | Discharge Summary ---
Discharge Summary Hospital Course Date of Admission Dec 21, 2016 at 04:06 Date of Discharge Dec 23, 2016 at 13:11 Admitting Diagnosis CHF HPI Bry Leggett is a 61 year old male who was admitted on Dec 21, 2016 at 04:06 for Congestive Heart Failure Hospital Course [id number] Discharge Discharge Disposition Patient was discharged to Home (01) Discharge Diagnoses: Aliyah Bateman NP Dec 24, 2016 06:33
--- NOTE | 2016-12-24 08:15 | Discharge Summary 2 SIG ---
DATE OF ADMISSION: 12/21/2016 DATE OF DISCHARGE: 12/23/2016 EMBEDDED FIRMWARE DEVELOPER: Porter Barnes M.D. BRIEF HOSPITAL COURSE: The patient is a 61-year-old male with history of diabetes mellitus, hypertension, and CHF was brought in by paramedics with chief complaint of acute onset of shortness of breath. Per the EMS, he had bilateral rales on examination and O2 was down to 80%. On evaluation at ED, labs showed elevated BNP at 1649 and chest x-ray showed bilateral infiltrates with small left pleural effusion consistent with pulmonary edema. He was initially placed on BiPAP and was given Lasix. EKG showed normal sinus rhythm with ST depressions on the leads V5 to V6. Aspirin was given. Troponin was negative. WBC was elevated to 12 and was given IV cefepime. The patient was then admitted to [facility] for acute respiratory failure, congestive heart failure, hypertension, and diabetes mellitus. He underwent cardiac evaluation. Troponins were monitored and was negative. Venous duplex showed no evidence of thrombus. EKG showed nonspecific T-wave changes. He had an echocardiogram done that showed EF of 55% to 60% with severe aortic stenosis. Right systolic pressure of 53. Peak aortic valve gradient 88 and mean gradient of 57 with aortic valve area of 0.6. The patient will likely need aortic valve replacement and possibly TAVR at [facility]. Two possibilities were discussed. Breathing improved. Creatinine was mildly elevated. Lasix was discontinued. The patient was cleared for discharge and can pursue eventual procedure which he chooses to do so. He was recommended need to follow up with blown film extrusion operator for evaluation of severe aortic stenosis. He was eventually discharged home. FINAL DIAGNOSES: 1. Acute respiratory failure, resolved. 2. Acute on chronic congestive heart failure. 3. Severe aortic stenosis. 4. Exertional chest pain. 5. Renal insufficiency. 6. Diabetes mellitus. 7. Hypertension. 8. Hyperlipidemia. DISPOSITION: The patient was discharged home. DISCHARGE MEDICATIONS: Refer to med list. FOLLOWUP: The patient will eventually need evaluation for severe aortic stenosis. We will need aortic valve replacement. However, may qualify for TAVR at [facility]. Options were given to the patient. Bethel Maldonado M.D. I have been assigned to dictate discharge summary on this account and I was not involved in the patient's management. Aliyah Bateman N.P. DR: ARUN JOB#: [id number] CC: IVON
== END 2016-12-23 13:11 | disposition home or self-care (01) | DRG 291 ==
LOC: ENRESERV → ENRESERVDT → ENRESERVTM → EDBD 02:54 → EMR 03:16 → 2W 04:06 → EDBEDREQ 05:54 → 2W 10:18
PROC: 5A09357 Assistance with Respiratory Ventilation, Less than 24 Consecutive Hours, Continuous Positive Airway Pressure (ICD-10-PCS; principal; 2016-12-21)
DX: I50.9 Heart failure, unspecified (principal); J96.00 Acute respiratory failure, unspecified whether with hypoxia or hypercapnia; I35.0 Nonrheumatic aortic (valve) stenosis; E11.9 Type 2 diabetes mellitus without complications; E78.5 Hyperlipidemia, unspecified; I10 Essential (primary) hypertension; N28.9 Disorder of kidney and ureter, unspecified; R07.1 Chest pain on breathing
CPT/HCPCS: 36415; 71010; 76775; 80048; 80053; 80069; 82550; 82553; 83880; 84484; 85025; 87040; 93306; 93970; 94664; 94760; J1815